=== PATIENT | female | born 1990 | race Caucasian/White ===

== ENCOUNTER 2016-06-14 06:38 | Day surgery (SDC) | payer BC ==
[~2016-06-14] VITALS: Ht 165.1 cm; Wt 57.1 kg
[~2016-06-14 06:38] MED LIST: KLONOPIN0.5 M1 PO; KLONOPIN0.5 MG PO; KLONOPIN1 MG PO; MACRODANTIN50 M1 PO; MINOCIN50 MG PO; MONONESSA1 EACH PO; OCELLA TABLET1 EACH PO; PRENATAL TABLE1 EAC3 PO; ZOLOFT25 MG PO
[2016-06-14 07:06] VITALS: BP 115/63
[2016-06-14] MEDS ORDERED: MOTRIN800 MG PO (08:30)
[2016-06-14] MEDS ORDERED: VICODIN 5-3001 EACH PO (08:30)
[2016-06-14 10:10] VITALS: BP 112/67
[2016-06-14 11:00] VITALS: BP 112/61
== END 2016-06-14 11:00 | disposition home or self-care (01) ==
LOC: SDC 06:38
DX: D06.9 Carcinoma in situ of cervix, unspecified (principal); Z87.891 Personal history of nicotine dependence; Z80.49 Family history of malignant neoplasm of other genital organs; Z80.41 Family history of malignant neoplasm of ovary
CPT/HCPCS: 88307; J1100; J2250; J2405; J3010